=== PATIENT | female | born 1975 | race Caucasian/White ===

== ENCOUNTER → 2017-02-09 | Outpatient (CLI) | payer BC ==
--- NOTE | 2017-02-09 07:44 | DIAGNOSTIC IMAGING REPORT ---
ABDOMINAL ULTRASOUND, RIGHT UPPER QUADRANT HISTORY: Nausea. Vomiting. Nausea/vomiting, intractability. COMPARISON: None. FINDINGS: Pancreas: The pancreas demonstrates a normal echotexture. Liver: Unremarkable. Gallbladder: Multiple gallstones within the gallbladder lumen. Normal gallbladder wall thickness. CBD: 6 mm. Right kidney: No hydronephrosis. IMPRESSION: Gallstones. Normal caliber bile ducts. Otherwise negative study. Electronically signed by: Rudy Madison M.D. 02/09/2017 7:42 AM Dictated Date/Time: 02/09/2017 7:40 AM
== END | disposition home or self-care (01) ==
PROVIDERS: ATTEND Family Medicine
DX: R11.2 Nausea with vomiting, unspecified (principal); A09 Infectious gastroenteritis and colitis, unspecified; R10.84 Generalized abdominal pain; R53.81 Other malaise; R53.83 Other fatigue; K80.20 Calculus of gallbladder without cholecystitis without obstruction

== ENCOUNTER 2017-11-06 18:02 | Emergency (ER) | payer BC, OTHER ==
[~2017-11-06] VITALS: Ht 188 cm; Wt 88.0 kg
[2017-11-06 18:05] VITALS: TEMP 36.4; Ht 188 cm; Wt 88.0 kg
[2017-11-06] MEDS ORDERED: FENTANYL CITRATE INJ 50 MCG/1 ML 2 ML VIAL ONE (18:18)
[2017-11-06] MEDS ORDERED: SODIUM CHLORIDE 0.9% 1000ML 1,000 ML IV STA (18:21)
[2017-11-06 18:23] VITALS: O2SAT 100
[2017-11-06] MEDS ORDERED: PROPOFOL IV EMULSION 10 MG/ML 20 ML VIAL IV ONE (18:37)
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
--- NOTE | 2017-11-06 19:01 | EMERGENCY ROOM VISIT NOTE ---
ED Visit Note Elbow Dislocation Reduction Indication: Elbow dislocation Verbal consent obtained. Risks and benefits were explained with the usual customary discussion. A time out was taken. Neurovascular examination before the procedure revealed left wrist and fingers neurovascularly intac. The left elbow dislocation was reduced by placing the patient prone and applying gentle downward inline traction on the forearm, with the elbow flexed at 90 degrees, while humeral manipulation was applied. This resulted in an easy reduction without complication. Neurovascular examination after the procedure revealed intact. The patient had significant pain relief and tolerated the procedure well. Vital Signs Date Time Temp Pulse Resp B/P (MAP) Pulse Ox O2 Delivery O2 Flow Rate FiO2 11/06/17 18:28 58 11/06/17 18:24 53 10 113/73 100 Non-Rebreather 10.0 11/06/17 18:23 100 Non-Rebreather 10.0 11/06/17 18:23 100 Non-Rebreather 10.0 11/06/17 18:05 36.4 56 18 79/49 99 Room Air Laboratory Results Test 11/06/17 18:21 Medications Administered Medications (Trade) Dose Ordered Sig/Stefanie Route Start Time Stop Time Status Last Admin Dose Admin Fentanyl Citrate (Fentanyl Inj) 100 mcg STK-MED ONCE .ROUTE 11/06/17 18:18 11/06/17 18:19 DC 11/06/17 18:18 75 MCG Sodium Chloride 1,000 ml @ 999 mls/hr Q1H1M STAT IV 11/06/17 18:21 11/06/17 19:21 11/06/17 18:21 999 MLS/HR Departure Information Referrals Petrona Pacheco M.D. (PCP) Forms HOME CARE DOCUMENTATION FORM, IMPORTANT VISIT INFORMATION Patient Instructions [facility]
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
[2017-11-06 19:24] LABS: BASO % 0.2 %; BASO ABS # 0.01 K/uL (0-0.2); EOS % 1.8 %; EOS ABS # 0.09 K/uL (0-0.5); HEMATOCRIT 32.3 % (37-47); HEMOGLOBIN 10.9 g/dL (12.0-16.0); IG# 0.01 K/uL (0.00-0.02); LYMPH ABS # 2.35 K/uL (1.2-3.4); MEAN CELL VOLUME 88.7 fL (80-100); MEAN CORPUSCULAR HEMOGLOBIN 29.9 pg (25-34); MEAN CORPUSCULAR HGB CONC 33.7 g/dl (32-36); MEAN PLATELET VOLUME 10.2 fL (7.4-10.4); MONO % 5.6 %; MONO ABS # 0.28 K/uL (0.11-0.59); NEUT % 45.2 %; NEUT ABS # 2.26 K/uL (1.4-6.5); PLATELET COUNT 195 K/uL (130-400); RED CELL DISTRIBUTION WIDTH CV 12.8 % (11.5-14.5); RED CELL DISTRIBUTION WIDTH SD 41.1 fL (36.4-46.3)
[2017-11-06] MEDS ORDERED: CHOL1000 PO (19:40)
[2017-11-06] MEDS ORDERED: BCPILLS PO (19:40)
[2017-11-06] MEDS ORDERED: FERR1TAB23 PO (19:40)
[2017-11-06 19:44] LABS: ALBUMIN 3.1 gm/dl (3.4-5.0); CALCIUM 8.1 mg/dl (8.5-10.1); CREATININE 0.87 mg/dl (0.60-1.20); POTASSIUM 3.6 mmol/L (3.5-5.1)
[2017-11-06 19:47] LABS: TOTAL PROTEIN 6.3 gm/dl (6.4-8.2)
[2017-11-06] MEDS ORDERED: MoRPHine SULFATE 4 MG/ML 1 ML CARP\\VIAL IV STA (19:49)
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
[2017-11-06 20:15] VITALS: BP 102/66; PULSE 47; O2SAT 100
[2017-11-06] MEDS ORDERED: OXYCODONE IR HOME PACK PO ONE (20:30)
--- NOTE | 2017-11-06 20:46 | EMERGENCY ROOM VISIT NOTE ---
Pre-Mod Sedation Assessment General Date of Moderate Sedation: Nov 06, 2017. Vital Signs: Vital Signs Past 12 Hours Date Time Temp Pulse Resp B/P (MAP) Pulse Ox O2 Delivery O2 Flow Rate FiO2 11/06/17 20:15 47 102/66 100 Room Air 11/06/17 19:27 46 0 100 11/06/17 19:22 45 0 100 11/06/17 19:21 11/06/17 19:17 46 10 99 11/06/17 19:15 111/70 11/06/17 19:12 51 10 100 11/06/17 19:11 111/73 11/06/17 19:07 52 14 100 11/06/17 19:05 118/79 11/06/17 19:03 114/72 11/06/17 19:02 60 19 11/06/17 19:01 54 18 114/72 100 Non-Rebreather 15.0 116/74 11/06/17 18:57 68 19 100 Non-Rebreather 10.0 11/06/17 18:52 51 19 125/68 100 Non-Rebreather 15.0 125/68 11/06/17 18:47 57 22 100 Non-Rebreather 15.0 11/06/17 18:45 65 121/79 100 Non-Rebreather 15.0 121/79 11/06/17 18:42 58 100 Non-Rebreather 10.0 11/06/17 18:41 121/73 11/06/17 18:38 123/84 11/06/17 18:37 56 20 100 Non-Rebreather 10.0 11/06/17 18:32 68 21 100 Non-Rebreather 10.0 11/06/17 18:30 118/89 11/06/17 18:28 58 11/06/17 18:27 60 17 100 Non-Rebreather 10.0 11/06/17 18:24 113/73 11/06/17 18:24 53 10 113/73 100 Non-Rebreather 10.0 11/06/17 18:23 100 Non-Rebreather 10.0 11/06/17 18:23 100 Non-Rebreather 10.0 11/06/17 18:05 36.4 56 18 79/49 99 Room Air Pre-Sedation Airway Assessment Oral Cavity: WNL Able to Visualize Vocal Cords: No Short Thick Neck: No Hx of Sleep Apnea: No Mallampati Classification: Class II (Sft palate,uvula,fauces visib.) ASA Classification: Class II Procedure Planning Contraindications-for Mod Sed: None Yes Notes The planned sedation has been discussed with the patient and consent obtained. I have identified the patient, determined the appropriateness of sedation and have assessed the patient immediately prior to the procedure. All medicine(s) and interventions are by my order.
--- NOTE | 2017-11-06 20:49 | EMERGENCY ROOM VISIT NOTE ---
Post-Moderate Sedation Plan General Date of Moderate Sedation Nov 06, 2017. Vital Signs: Vital Signs Past 12 Hours Date Time Temp Pulse Resp B/P (MAP) Pulse Ox O2 Delivery O2 Flow Rate FiO2 11/06/17 20:15 47 102/66 100 Room Air 11/06/17 19:27 46 0 100 11/06/17 19:22 45 0 100 11/06/17 19:21 11/06/17 19:17 46 10 99 11/06/17 19:15 111/70 11/06/17 19:12 51 10 100 11/06/17 19:11 111/73 11/06/17 19:07 52 14 100 11/06/17 19:05 118/79 11/06/17 19:03 114/72 11/06/17 19:02 60 19 11/06/17 19:01 54 18 114/72 100 Non-Rebreather 15.0 116/74 11/06/17 18:57 68 19 100 Non-Rebreather 10.0 11/06/17 18:52 51 19 125/68 100 Non-Rebreather 15.0 125/68 11/06/17 18:47 57 22 100 Non-Rebreather 15.0 11/06/17 18:45 65 121/79 100 Non-Rebreather 15.0 121/79 11/06/17 18:42 58 100 Non-Rebreather 10.0 11/06/17 18:41 121/73 11/06/17 18:38 123/84 11/06/17 18:37 56 20 100 Non-Rebreather 10.0 11/06/17 18:32 68 21 100 Non-Rebreather 10.0 11/06/17 18:30 118/89 11/06/17 18:28 58 11/06/17 18:27 60 17 100 Non-Rebreather 10.0 11/06/17 18:24 113/73 11/06/17 18:24 53 10 113/73 100 Non-Rebreather 10.0 11/06/17 18:23 100 Non-Rebreather 10.0 11/06/17 18:23 100 Non-Rebreather 10.0 11/06/17 18:05 36.4 56 18 79/49 99 Room Air Review - Discharge Plan Post Moderate Sedation Plan: Patient was sedated from 6:44 PM to 7 PM. She received a total of 130 mg of propofol with interval titration for sedation. She remained on a nonrebreather prior sedation and until the sedation concluded. At the conclusion of the sedation she was able to cough and states that the tingling has resolved in her left upper extremity. Of note she did drink liquids an hour prior to arrival. With her paresthesias the sedation was done emergently with a dislocated left elbow. On clinical assessment, the patient appears to have tolerated the conscious sedation without complications. Patient is recovering as anticipated. Patient will continue to be monitored by nursing and may be discharged when conscious sedation discharge criteria are met.
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
== END 2017-11-06 20:56 | disposition home or self-care (01) ==
LOC: C.EDB 18:05
DX: S53.105A Unspecified dislocation of left ulnohumeral joint, initial encounter (principal); V18.4XXA Pedal cycle driver injured in noncollision transport accident in traffic accident, initial encounter; Y92.488 Other paved roadways as the place of occurrence of the external cause; Y93.55 Activity, bike riding; D64.9 Anemia, unspecified; S80.211A Abrasion, right knee, initial encounter; S80.212A Abrasion, left knee, initial encounter; S80.11XA Contusion of right lower leg, initial encounter; S80.12XA Contusion of left lower leg, initial encounter; Z79.3 Long term (current) use of hormonal contraceptives